=== PATIENT | male | born 1970 | race African-American/Black ===

== ENCOUNTER 2019-01-18 18:57 | Inpatient (IN) | payer OTHER ==
[2019-01-18 19:50] VITALS: BMI 28.8
--- NOTE | 2019-01-18 21:09 | HP ---
COWS - Scale Resting Pulse: 0= [place] 80 or Below Sweatin=Flushed/Facial Moisture Restless Observation: 3= Extraneous Movement Pupil Size: 0= Normal to Room Light Bone or Joint Aches: 0= None Runny Nose/ Eye Tearin= Nasal Congestion GI Upset > 30mins: 2= Nausea/Diarrhea Tremor Observation: 0= None Yawning Observation: 2= >3x During Session Anxiety or Irritability: 2=Irritable/Anxious Goose Flesh Skin: 0=Smooth Skin COWS Score: 12 CIWA Score - Admission Criteria OASAS Guidelines: Admission for Medically Managed Detox: Requires at least one of the followin. CIWA greater than 12 2. Seizures within the past 24 hours 3. Delirium tremens within the past 24 hours 4. Hallucinations within the past 24 hours 5. Acute intervention needed for co occurring medical disorder 6. Acute intervention needed for co occurring psychiatric disorder 7. Severe withdrawal that cannot be handled at a lower level of care (continued vomiting, continued diarrhea, abnormal vital signs) requiring intravenous medication and/or fluids 8. Admission ROS [facility] Chief Complaint: C/O WORSENING WITHDRAWAL SX'S Allergies/Adverse Reactions: Allergies Allergy/AdvReac Type Severity Reaction Status Date / Time No Known Allergies Allergy Verified 01/18/19 20:38 History of Present Illness: 48 Y.O. MALE WITH HX/O OPIOID DEPENDENCE HERE FOR DETOX. CLIENT WAS REFERRED BY [facility] AFTER PRESENTING THERE FOR DETOX WITH NO BED AVAILABILITY. THIS IS HIS FIRST ADMISSION HERE. HE REPORTS THIS IS HIS FIRST ATTEMPT AT DETOX. PRESENT WITH C/O WORSENING WITHDRAWAL SX'S. COWS 12. UTOX + THC, AYLA, FEN, OPI. DENIES ANY CLEAN TIME. DENIES HX/O SEIZURES, SI/HI/AVH, DRUG OVER DOSE. LIVES WITH , UNEMPLOYED, DENIES LEGALS. PMHX- HX/O +PPD PSYCH- DENIES Exam Limitations: No Limitations - Ebola screening Have you traveled outside of the country in the last 21 days: No (N) Have you had contact with anyone from an Ebola affected area: No Have you been sick,other than usual withdrawal symptoms: No Do you have a fever: No - Review of Systems Constitutional: Chills, Loss of Appetite, Night Sweats, Changes in sleep, Unintentional Wgt. Loss EENT: reports: Dental Problems (MISSING TEETH) Respiratory: reports: No Symptoms reported Cardiac: reports: No Symptoms Reported GI: reports: Diarrhea, Poor Appetite, Poor Fluid Intake : reports: No Symptoms Reported Musculoskeletal: reports: Back Pain (CHRONIC) Integumentary: reports: No Symptoms Reported Neuro: reports: No Symptoms reported Endocrine: reports: No Symptoms Reported Hematology: reports: No Symptoms Reported Psychiatric: reports: Orientated x3 Other Systems: Reviewed and Negative Patient History - Patient Medical History Hx Anemia: No Hx Asthma: No Hx Chronic Obstructive Pulmonary Disease (COPD): No Hx Cancer: No Hx Cardiac Disorders: No Hx Congestive Heart Failure: No Hx Hypertension: No Hx Hypercholesterolemia: No Hx Pacemaker: No HX Cerebrovascular Accident: No Hx Seizures: No Hx Dementia: No Hx Diabetes: No Hx Gastrointestinal Disorders: No Hx Liver Disease: No Hx Genitourinary Disorders: No Hx Sexually Transmitted Disorders: No Hx Renal Disease (ESRD): No Hx Thyroid Disease: No Hx Human Immunodeficiency Virus (HIV): No Hx Hepatitis C: No Hx Depression: No Hx Suicide Attempt: No Hx Bipolar Disorder: No Hx Schizophrenia: No Other Medical History: HX/O +PPD-TX'ED - Patient Surgical History Past Surgical History: Yes Hx Neurologic Surgery: No Hx Cataract Extraction: No Hx Cardiac Surgery: No Hx Lung Surgery: No Hx Breast Surgery: No Hx Breast Biopsy: No Hx Abdominal Surgery: No Hx Appendectomy: No Hx Cholecystectomy: No Hx Genitourinary Surgery: No Hx Section: No Hx Orthopedic Surgery: Yes (JAW FX) Anesthesia Reaction: No - PPD History Previous Implant?: Yes Documented Results: Positive w/o proof Implanted On Prior R Admission?: No PPD to be Administered?: No - Smoking Cessation Smoking history: Current every day smoker Have you smoked in the past 12 months: Yes Aproximately how many cigarettes per day: 20 Cigars Per Day: 0 Hx Chewing Tobacco Use: No Initiated information on smoking cessation: Yes 'Breaking Loose' booklet given: 01/18/19 - Substance & Tx. History Hx Alcohol Use: No Hx Substance Use: Yes Substance Use Type: Cocaine, Heroin, Marijuana Hx Substance Use Treatment: No - Substances Abused Heroin Route: Injection Frequency: Daily Amount used: 13 bags Age of first use: 45 Date of Last Use: 01/17/19 COCAINE Route: Smoking Frequency: 3-6 times per week Amount used: 30 DOLLARS Age of first use: 28 Date of Last Use: 01/17/19 THC Route: Smoking Frequency: 1-3 times last 30 days Amount used: 2 PUFF Age of first use: 16 Date of Last Use: 01/14/19 Family Disease History - Family Disease History Family Disease History: Diabetes: Father, Mother (ESRD-HD), Sister, CA: Grandparent (COLON), Other: Grandparent, Mother Admission Physical Exam S - Vital Signs Vital Signs: Vital Signs - 24 hr 01/18/19 19:47 Temperature 97.1 F L Pulse Rate 69 Respiratory 18 Rate Blood Pressure 101/65 - Physical General Appearance: Yes: Appropriately Dressed, Anxious HEENTM: Yes: EOMI, Normocephalic, Normal Voice, BILLIE, Pharynx Normal, Nasal Congestion, Other (MISSING TEETH) Respiratory: Yes: Chest Non-Tender, Lungs Clear, Normal Breath Sounds, No Respiratory Distress, No Accessory Muscle Use Neck: Yes: No masses,lesions,Nodules, Supple, Trachea in good position Breast: Yes: Breast Exam Deferred Cardiology: Yes: Regular Rhythm, Regular Rate, S1, S2 Abdominal: Yes: Non Tender, Soft, Increased Bowel Sounds Genitourinary: Yes: Within Normal Limits (NO C/O OFFERED) Back: Yes: Normal Inspection Musculoskeletal: Yes: full range of Motion, Gait Steady Extremities: Yes: Normal Capillary Refill, Normal Range of Motion, Non-Tender Neurological: Yes: hotel houseman II-XII NML intact, Fully Oriented, Alert, Motor Strength 5/5 Integumentary: Yes: Dry, Warm, Track Harry (ASSOCIATED WITH OLD ABCESS SCAR TISSUE TO BOTH ARMS), Other (LEFT FOREARM PUNCTURE WOUND X2 WITH YELLOWISH SLOUGH WITH INDURATED BORDERS. HOT TO TOUCH. CLIENT REPORTS HE WAS SEEN IN ER 1 WEEK AGO WHEN IT HAPPENED AND RECIEVED A TETANUS VACCINE AND IV ABT TXMNET. WILL TREAT FOR CELLULITIS) - Diagnostic (1) Opioid dependence with withdrawal Current Visit: Yes Status: Acute (2) Cannabis abuse, uncomplicated Current Visit: Yes Status: Acute (3) Cocaine abuse, uncomplicated Current Visit: Yes Status: Acute (4) At risk for dehydration due to poor fluid intake Current Visit: Yes Status: Acute (5) Nicotine dependence Current Visit: Yes Status: Chronic Qualifiers: Nicotine product type: cigarettes Substance use status: uncomplicated Qualified Code(s): F17.210 - Nicotine dependence, cigarettes, uncomplicated (6) Puncture wound of right forearm Current Visit: Yes Status: Acute Qualifiers: Encounter type: subsequent encounter Qualified Code(s): S51.831D - Puncture wound without foreign body of right forearm, subsequent encounter (7) Cellulitis of right forearm Current Visit: Yes Status: Acute (8) History of positive PPD Current Visit: Yes Status: Chronic Cleared for Admission [facility] - Detox or Rehab [facility] Level of Care: Medically Managed Detox Regimen/Protocol: Methadone Claeared for Rehab Admission: No [facility] Breath Alcohol Content Breath Alcohol Content: 0 Urine Drug Screen - Results Drug Screen Negative: No Urine Drug Screen Results: THC-Marijuana, AYLA-Cocaine, OPI-Opiates, FEN-Fentanyl Inpatient Rehab Admission - Rehab Decision to Admit Inpatient rehab admission?: No
[2019-01-18] MEDS ORDERED: NICOTINE POLACRILEX 2 MG GUM BC PRN (21:43)
[2019-01-18] MEDS ORDERED: IBUPROFEN 400 MG TABLET (FP) PO PRN (21:43)
[2019-01-18] MEDS ORDERED: MAG HYDROX/AL HYDROX/SIMETH 30 ML UNIT-DOSE CUP PO PRN (21:43)
[2019-01-18] MEDS ORDERED: MENTHOL/PHENOL 1 EACH UD MM PRN (21:43)
[2019-01-18] MEDS ORDERED: guaiFENesin/D-METHORPHAN HB 10 ML UNIT-DOSE CUPS PO PRN (21:43)
[2019-01-18] MEDS ORDERED: P-EPHED 60MG/TRIPROLIDI 2.5MG TABLET PO PRN (21:43)
[2019-01-18] MEDS ORDERED: hydrOXYzine PAMOATE 50 MG CAPSULE (FP) PO PRN (21:43)
[2019-01-18] MEDS ORDERED: MAGNESIUM CITRATE 300 ML BOTTLE PO PRN (21:43)
[2019-01-18] MEDS ORDERED: LOPERAMIDE HCL 2 MG CAPSULE PO PRN (21:43)
[2019-01-18] MEDS ORDERED: MAGNESIUM HYDROX 2400MG/30ML ORAL SUSPENSION 30 ML CUP PO PRN (21:43)
[2019-01-18] MEDS ORDERED: ACETAMINOPHEN 325 MG TABLET (FP) PO PRN (21:43)
[2019-01-18] MEDS ORDERED: MELATONIN 5 MG TABLETS PO PRN (22:00)
[2019-01-19] MEDS: THIAMINE HCL 100 MG TABLET (FP) PO SCH ×2 (00:48→22:25)
[2019-01-19] MEDS: CEPHALEXIN MONOHYDRATE 500 MG CAPSULE (UD) PO SCH ×5 (00:48→23:02)
[2019-01-19] MEDS ORDERED: METHADONE HCL 10 MG TABLET (FOR DETOX USE ONLY) PO ONE ×3 (00:58→23:00)
[2019-01-19] MEDS: NICOTINE 21 MG/24 HOURS TOPICAL PATCH TD SCH (10:18)
[2019-01-19] MEDS: diazePAM 5 MG TABLET PO PRN ×2 (10:19→22:25)
[2019-01-19] MEDS: PRENATAL VITAMINS W/ FOLIC ACID TABLET (FP) PO SCH (10:20)
[2019-01-19 10:22] LABS: HEMOGLOBIN 11.6 GM/dL (11.7-16.9); MCH 28.5 pg (25.7-33.7); MCHC 33.2 g/dl (32.0-35.9); MEAN CELL VOLUME 85.9 fl (80-96); MEAN PLT VOLUME 7.9 fl (7.5-11.1); PLATELET COUNT 353 K/MM3 (134-434); RBC 4.08 M/mm3 (4.00-5.60); RDW 14.5 % (11.9-15.9); WHITE BLOOD COUNT 4.9 K/mm3 (4.0-10.0)
[2019-01-19 12:02] LABS: ALBUMIN 2.9 g/dl (3.4-5.0); ALK PHOS 73 U/L (45-117); ANION GAP 6 MMOL/L (8-16); BILIRUBIN,TOTAL 0.2 mg/dL (0.2-1); BLOOD UREA NITROGEN 13 mg/dL (7-18); CALCIUM 8.6 mg/dL (8.5-10.1); CHLORIDE 105 mmol/L (98-107); CO2 29 mmol/L (21-32); GLUCOSE,RANDOM 88 mg/dL (74-106); POTASSIUM 4.8 mmol/L (3.5-5.1); SGOT/AST 50 U/L (15-37); SGPT/ALT 114 U/L (13-61); SODIUM 141 mmol/L (136-145); TOT PROT 7.5 g/dl (6.4-8.2)
--- NOTE | 2019-01-19 12:46 | EKG ---
Test Reason : Blood Pressure : / mmHG Vent. Rate : 070 BPM Atrial Rate : 070 BPM P-R Int : 146 ms QRS Dur : 102 ms QT Int : 410 ms P-R-T Axes : 083 079 060 degrees QTc Int : 442 ms NORMAL SINUS RHYTHM VOLTAGE CRITERIA FOR LEFT VENTRICULAR HYPERTROPHY ABNORMAL ECG NO PREVIOUS ECGS AVAILABLE Confirmed by GAYATHRI CUELLAR MD ([id number]) on 01/19/2019 12:46:23 PM Referred By: Confirmed By:GAYATHRI CUELLAR MD
--- NOTE | 2019-01-19 14:41 | PN ---
BHS COWS - Scale Resting Pulse: 1= [place] 81-100 Sweatin= Chills/Flushing Restless Observation: 0= Sits Still Pupil Size: 0= Normal to Room Light Bone or Joint Aches: 1= Mild Discomfort Runny Nose/ Eye Tearin= Nasal Congestion GI Upset > 30mins: 0= None Tremor Observation of Outstretched Hands: 1= Tremor [place], Not Seen Yawning Observation: 0= None Anxiety or Irritability: 1=Feels Anxious/Irritable Goose Flesh Skin: 0=Smooth Skin COWS Score: 6 BHS Progress Note (SOAP) Subjective: Says feels OK with detox protocol. Pt with forearm in bandage after being diagnosed with cellulitis after puncturing arm on metal gate, wants to go to rehab O: Vital Signs - 24 hr 01/18/19 01/19/19 01/19/19 19:47 00:30 03:30 Temperature 97.1 F L 98.2 F Pulse Rate 69 74 Respiratory 18 18 18 Rate Blood Pressure 101/65 126/72 01/19/19 01/19/19 01/19/19 07:50 09:13 12:56 Temperature 98.1 F 97.3 F L 97.4 F L Pulse Rate 78 76 66 Respiratory 18 18 18 Rate Blood Pressure 133/80 128/78 150/88 Laboratory Tests 01/19/19 01/19/19 01/19/19 07:00 07:00 07:00 WBC 4.9 RBC 4.08 Hgb 11.6 L Hct 35.0 L MCV 85.9 MCH 28.5 MCHC 33.2 RDW 14.5 Plt Count 353 MPV 7.9 Sodium 141 Potassium 4.8 Chloride 105 Carbon Dioxide 29 Anion Gap 6 L BUN 13 Creatinine 1.0 Creat Clearance w eGFR > 60 Random Glucose 88 Calcium 8.6 Total Bilirubin 0.2 AST 50 H ALT 114 H Alkaline Phosphatase 73 Total Protein 7.5 Albumin 2.9 L RPR Titer Nonreactive mild anemia. low albumin arm in bandage- pt came in yesterday, pt states arm is fine a/o: continue heroin detox protocol monitor arm injury/infection, daily dressing changes
[2019-01-19 19:53] LABS: URINE APPEARANCE TURBID; URINE BILIRUBIN NEGATIVE (<2.0 mg/dL); URINE COLOR AMBER; URINE GLUCOSE (UA) NEGATIVE (NEGATIVE); URINE KETONE NEGATIVE (NEGATIVE); URINE LEUK ESTERASE NEGATIVE (NEGATIVE); URINE NITRITE NEGATIVE (NEGATIVE); URINE PROTEIN 1+ (NEGATIVE)
[2019-01-19 19:58] LABS: CALCIUM OXALATE CRYSTALS FEW /hpf (NONE SEEN); URINE MUCUS RARE
[2019-01-20] MEDS: CEPHALEXIN MONOHYDRATE 500 MG CAPSULE (UD) PO SCH ×4 (06:21→23:13)
[2019-01-20] MEDS: diazePAM 5 MG TABLET PO PRN ×3 (06:23→22:21)
--- NOTE | 2019-01-20 09:45 | PN ---
BHS COWS - Scale Resting Pulse: 1= [place] 81-100 Sweatin= Chills/Flushing Restless Observation: 1= Difficult to Sit Still Pupil Size: 1= Pupils >than Normal Bone or Joint Aches: 2= Severe Diffuse Aches Runny Nose/ Eye Tearin= Runny Nose/Eyes GI Upset > 30mins: 2= Nausea/Diarrhea Tremor Observation of Outstretched Hands: 2= Slight Tremor Visible Yawning Observation: 1= 1-2x During Session Anxiety or Irritability: 2=Irritable/Anxious Goose Flesh Skin: 0=Smooth Skin COWS Score: 15 BHS Progress Note (SOAP) Subjective: alert,irritable,anxious,interrupted sleep,tremor,pain in the body and back Objective: 01/20/19 09:45 Vital Signs Temperature 98.2 F 01/20/19 09:35 Pulse Rate 81 01/20/19 09:35 Respiratory Rate 18 01/20/19 09:35 Blood Pressure 137/90 01/20/19 09:35 O2 Sat by Pulse Oximetry (%) Assessment: 01/20/19 09:45 withdrawal symptom Plan: continue detox
[2019-01-20] MEDS ORDERED: METHADONE HCL 10 MG TABLET (FOR DETOX USE ONLY) PO ONE (10:00)
[2019-01-20] MEDS: PRENATAL VITAMINS W/ FOLIC ACID TABLET (FP) PO SCH (10:37)
[2019-01-20] MEDS: NICOTINE 21 MG/24 HOURS TOPICAL PATCH TD SCH (10:37)
[2019-01-20] MEDS: THIAMINE HCL 100 MG TABLET (FP) PO SCH (22:21)
[2019-01-21] MEDS: diazePAM 5 MG TABLET PO PRN ×4 (05:34→23:07)
[2019-01-21] MEDS: CEPHALEXIN MONOHYDRATE 500 MG CAPSULE (UD) PO SCH ×4 (05:34→23:07)
[2019-01-21] MEDS ORDERED: METHADONE HCL 5 MG TABLET (FOR DETOX USE ONLY) PO ONE (10:00)
[2019-01-21] MEDS: NICOTINE 21 MG/24 HOURS TOPICAL PATCH TD SCH (10:28)
[2019-01-21] MEDS: PRENATAL VITAMINS W/ FOLIC ACID TABLET (FP) PO SCH (10:28)
--- NOTE | 2019-01-21 13:11 | PN ---
BHS Progress Note (SOAP) Subjective: agitation sweats irritable Objective: 01/21/19 13:10 Vital Signs Temperature 97.5 F L 01/21/19 09:07 Pulse Rate 87 01/21/19 09:07 Respiratory Rate 18 01/21/19 09:07 Blood Pressure 136/78 01/21/19 09:07 O2 Sat by Pulse Oximetry (%) Laboratory Tests 01/19/19 01/19/19 01/19/19 07:00 07:00 07:00 WBC 4.9 RBC 4.08 Hgb 11.6 L Hct 35.0 L MCV 85.9 MCH 28.5 MCHC 33.2 RDW 14.5 Plt Count 353 MPV 7.9 Sodium 141 Potassium 4.8 Chloride 105 Carbon Dioxide 29 Anion Gap 6 L BUN 13 Creatinine 1.0 Creat Clearance w eGFR > 60 Random Glucose 88 Calcium 8.6 Total Bilirubin 0.2 AST 50 H ALT 114 H Alkaline Phosphatase 73 Total Protein 7.5 Albumin 2.9 L Urine Color Urine Appearance Urine pH Ur Specific [place] Urine Protein Urine Glucose (UA) Urine Ketones Urine Blood Urine Nitrite Urine Bilirubin Urine Urobilinogen Ur Leukocyte Esterase Urine WBC (Auto) Urine RBC (Auto) Calcium Oxalate Crystal Urine Mucus RPR Titer Nonreactive 01/19/19 15:40 WBC RBC Hgb Hct MCV MCH MCHC RDW Plt Count MPV Sodium Potassium Chloride Carbon Dioxide Anion Gap BUN Creatinine Creat Clearance w eGFR Random Glucose Calcium Total Bilirubin AST ALT Alkaline Phosphatase Total Protein Albumin Urine Color Wendy Urine Appearance Turbid Urine pH 5.0 Ur Specific [place] 1.028 Urine Protein 1+ H Urine Glucose (UA) Negative Urine Ketones Negative Urine Blood Negative Urine Nitrite Negative Urine Bilirubin Negative Urine Urobilinogen 2.0 Ur Leukocyte Esterase Negative Urine WBC (Auto) 1 Urine RBC (Auto) None Calcium Oxalate Crystal Few Urine Mucus Rare RPR Titer aaox3 ambulating no acute distress labs noted Assessment: 01/21/19 13:11 withdrawal sx Plan: continue detox increase fluids
[2019-01-21] MEDS: THIAMINE HCL 100 MG TABLET (FP) PO SCH (23:07)
[2019-01-22] MEDS: CEPHALEXIN MONOHYDRATE 500 MG CAPSULE (UD) PO SCH ×2 (05:50→12:46)
[2019-01-22] MEDS ORDERED: METHADONE HCL 5 MG TABLET (FOR DETOX USE ONLY) PO ONE (10:00)
[2019-01-22 10:25] VITALS: BP 130/92; PULSE 58; TEMP 95.9
[2019-01-22] MEDS: NICOTINE 21 MG/24 HOURS TOPICAL PATCH TD SCH (10:42)
[2019-01-22] MEDS: PRENATAL VITAMINS W/ FOLIC ACID TABLET (FP) PO SCH (10:42)
--- NOTE | 2019-01-22 12:53 | PN ---
[facility] Progress Note Note: pt refused to continue with his detox regimen. pt was explained his purpose for completing detox but pt refused to listen and insisted on leaving. Pt spoke with counseling and RN as well. pt signed out AMA.
--- NOTE | 2019-01-22 12:56 | DS ---
[facility] Detox Discharge Summary Admission Date: 01/18/19 - History Present History: Cannabis Dependence, Cocaine Dependence, Opioid Dependence - Physical Exam Results Vital Signs: Vital Signs Temperature 95.9 F L 01/22/19 10:24 Pulse Rate 58 L 01/22/19 10:24 Respiratory Rate 18 01/22/19 10:24 Blood Pressure 130/92 01/22/19 10:24 O2 Sat by Pulse Oximetry (%) - Treatment Hospital Course: Discharged Condition Good - Medication Discharge Medications: Ambulatory Orders NK [No Known Home Medication] 01/18/19 - Diagnosis (1) Cannabis abuse, uncomplicated Current Visit: Yes Status: Chronic (2) Cellulitis of right forearm Current Visit: Yes Status: Acute (3) Cocaine abuse, uncomplicated Current Visit: Yes Status: Chronic (4) Opioid dependence with withdrawal Current Visit: Yes Status: Chronic (5) Puncture wound of right forearm Current Visit: Yes Status: Acute Qualifiers: Encounter type: subsequent encounter Qualified Code(s): S51.831D - Puncture wound without foreign body of right forearm, subsequent encounter (6) History of positive PPD Current Visit: Yes Status: Chronic (7) Nicotine dependence Current Visit: Yes Status: Chronic Qualifiers: Nicotine product type: cigarettes Substance use status: uncomplicated Qualified Code(s): F17.210 - Nicotine dependence, cigarettes, uncomplicated - AMA Did Patient Leave Against Medical Advice: Yes (going home)
[2019-01-23] MEDS ORDERED: METHADONE HCL 10 MG TABLET (FOR DETOX USE ONLY) PO ONE (10:00)
[2019-01-24] MEDS ORDERED: METHADONE HCL 5 MG TABLET (FOR DETOX USE ONLY) PO ONE (06:00)
== END 2019-01-22 13:40 | disposition left against medical advice (07) | DRG 770 ==
LOC: YASAS 18:57 → Y6N 22:14
PROVIDERS: ADMIT Surgery; ATTEND Surgery
PROC: HZ2ZZZZ Detoxification Services for Substance Abuse Treatment (ICD-10-PCS; principal; 2019-01-18)
DX: F11.23 Opioid dependence with withdrawal (principal); F14.10 Cocaine abuse, uncomplicated; F12.10 Cannabis abuse, uncomplicated; F17.210 Nicotine dependence, cigarettes, uncomplicated; L03.113 Cellulitis of right upper limb; R76.11 Nonspecific reaction to tuberculin skin test without active tuberculosis; Z59.0 Homelessness; S41.132D Puncture wound without foreign body of left upper arm, subsequent encounter; W22.8XXD Striking against or struck by other objects, subsequent encounter
CPT/HCPCS: 36415; 71046-TC-FY; 80053; 81003; 81015; 85027; 86593; 93005; 93010

== ENCOUNTER 2019-03-08 14:17 | Inpatient (IN) | payer OTHER ==
[2019-03-08 22:44] VITALS: BMI 29.5
[2019-03-08] MEDS ORDERED: METHADONE HCL 10 MG TABLET (FOR DETOX USE ONLY) PO ONE (23:00)
--- NOTE | 2019-03-08 23:25 | HP ---
COWS - Scale Resting Pulse: 0= [place] 80 or Below Sweatin=Flushed/Facial Moisture Restless Observation: 0= Sits Still Pupil Size: 1= Pupils >than Normal Bone or Joint Aches: 4=Acute Joint/Muscle Pain Runny Nose/ Eye Tearin= Nasal Congestion GI Upset > 30mins: 2= Nausea/Diarrhea (diarrhea x 3) Tremor Observation: 2= Slight Tremor Visible Yawning Observation: 1= 1-2x During Session Anxiety or Irritability: 2=Irritable/Anxious Goose Flesh Skin: 0=Smooth Skin COWS Score: 15 CIWA Score - Admission Criteria OASAS Guidelines: Admission for Medically Managed Detox: Requires at least one of the followin. CIWA greater than 12 2. Seizures within the past 24 hours 3. Delirium tremens within the past 24 hours 4. Hallucinations within the past 24 hours 5. Acute intervention needed for co occurring medical disorder 6. Acute intervention needed for co occurring psychiatric disorder 7. Severe withdrawal that cannot be handled at a lower level of care (continued vomiting, continued diarrhea, abnormal vital signs) requiring intravenous medication and/or fluids 8. Admission ROS [facility] Chief Complaint: Heroin withdrawal symptoms Allergies/Adverse Reactions: Allergies Allergy/AdvReac Type Severity Reaction Status Date / Time No Known Allergies Allergy Verified 03/08/19 22:39 History of Present Illness: 48 years old male with 23 years of heroin dependence is seeking admission to detox. Patient has been in previous detox multiple times and reports insignificant period of sobriety. He denies past medical history and suicidal ideation at this time. Exam Limitations: No Limitations - Ebola screening Have you traveled outside of the country in the last 21 days: No (N) Have you had contact with anyone from an Ebola affected area: No Have you been sick,other than usual withdrawal symptoms: No Do you have a fever: No - Review of Systems Constitutional: Chills, Malaise, Changes in sleep EENT: reports: Nose Congestion Respiratory: reports: No Symptoms reported Cardiac: reports: No Symptoms Reported GI: reports: Diarrhea (x 2), Nausea, Poor Appetite, Poor Fluid Intake, Abdominal cramping : reports: No Symptoms Reported Musculoskeletal: reports: Back Pain, Muscle Pain Integumentary: reports: Dryness, Flushing Neuro: reports: Tremors Endocrine: reports: No Symptoms Reported Hematology: reports: No Symptoms Reported Psychiatric: reports: Mood/Affect Appropiate, Orientated x3 Other Systems: Reviewed and Negative Patient History - Patient Medical History Hx Anemia: No Hx Asthma: No Hx Chronic Obstructive Pulmonary Disease (COPD): No Hx Cancer: No Hx Cardiac Disorders: No Hx Congestive Heart Failure: No Hx Hypertension: No Hx Hypercholesterolemia: No Hx Pacemaker: No HX Cerebrovascular Accident: No Hx Seizures: No Hx Dementia: No Hx Diabetes: No Hx Gastrointestinal Disorders: No Hx Liver Disease: No Hx Genitourinary Disorders: No Hx Sexually Transmitted Disorders: No Hx Renal Disease (ESRD): No Hx Thyroid Disease: No Hx Human Immunodeficiency Virus (HIV): No Hx Hepatitis C: No Hx Depression: No Hx Suicide Attempt: No Hx Bipolar Disorder: No Hx Schizophrenia: No - Patient Surgical History Past Surgical History: Yes Hx Neurologic Surgery: No Hx Cataract Extraction: No Hx Cardiac Surgery: No Hx Lung Surgery: No Hx Breast Surgery: No Hx Breast Biopsy: No Hx Abdominal Surgery: No Hx Appendectomy: No Hx Cholecystectomy: No Hx Genitourinary Surgery: No Hx Section: No Hx Orthopedic Surgery: Yes (JAW FX 20 YEARS AGO) Anesthesia Reaction: No - PPD History Previous Implant?: Yes (Treated with INH 10 years ago) Documented Results: Positive w/o proof Implanted On Prior [facility] Admission?: No PPD to be Administered?: No - Reproductive History Patient is a Female of Child Bearing Age (11 -55 yrs old): No (MALE) - Smoking Cessation Smoking history: Current every day smoker Have you smoked in the past 12 months: Yes Aproximately how many cigarettes per day: 20 Cigars Per Day: 0 Hx Chewing Tobacco Use: No Initiated information on smoking cessation: Yes 'Breaking Loose' booklet given: 03/08/19 - Substance & Tx. History Hx Alcohol Use: No Hx Substance Use: Yes Substance Use Type: Cocaine, Heroin Hx Substance Use Treatment: Yes ([facility]) - Substances abused Cocaine Substance route: Smoking Frequency: 3-6 times per week Amount used: $20 Age of first use: 25 Date of last use: 03/06/19 None Substance route: Injection Frequency: Daily Amount used: 2 bundles Age of first use: 25 Date of last use: 03/08/19 Family Disease History - Family Disease History Family Disease History: Diabetes: Father, Mother (ESRD-HD), Sister, CA: Grandparent (COLON), Other: Grandparent, Mother Admission Physical Exam [facility] - Vital Signs Vital Signs: Vital Signs - 24 hr 03/08/19 22:33 Temperature 97 F L Pulse Rate 78 Respiratory 18 Rate Blood Pressure 113/73 - Physical General Appearance: Yes: Moderate Distress, Tremorous, Anxious HEENTM: Yes: EOMI, Normal Voice, BILLIE Respiratory: Yes: Lungs Clear, Normal Breath Sounds, No Respiratory Distress Neck: Yes: Supple Breast: Yes: Breast Exam Deferred Cardiology: Yes: Regular Rhythm, Regular Rate Abdominal: Yes: Normal Bowel Sounds Genitourinary: Yes: Within Normal Limits Back: Yes: Normal Inspection Musculoskeletal: Yes: Back pain, Muscle Pain Extremities: Yes: Tremors Neurological: Yes: Alert, Normal Mood/Affect Integumentary: Yes: Warm, Track Harry (both arms) Lymphatic: Yes: Within Normal Limits - Diagnostic (1) Cocaine abuse, uncomplicated Current Visit: Yes Status: Chronic (2) History of positive PPD Current Visit: Yes Status: Chronic (3) Nicotine dependence Current Visit: Yes Status: Chronic Qualifiers: Nicotine product type: cigarettes Substance use status: uncomplicated Qualified Code(s): F17.210 - Nicotine dependence, cigarettes, uncomplicated (4) Opioid dependence with withdrawal Current Visit: Yes Status: Acute Cleared for Admission [facility] - Detox or Rehab [facility] Level of Care: Medically Managed Detox Regimen/Protocol: Methadone Urine Drug Screen - Test Device Lot number: [id number] Expiration date: 10/15/20 - Control Is test valid?: Yes - Results Drug screen NEGATIVE: No Urine drug screen results: AYLA-Cocaine, FEN-Fentanyl, BZO-Benzodiazepines Inpatient Rehab Admission - Rehab Decision to Admit Inpatient rehab admission?: No
[2019-03-08] MEDS ORDERED: MAG HYDROX/AL HYDROX/SIMETH 30 ML UNIT-DOSE CUP PO PRN (23:33)
[2019-03-08] MEDS ORDERED: ACETAMINOPHEN 325 MG TABLET (FP) PO PRN ×2 (23:33)
[2019-03-08] MEDS ORDERED: cloNIDine HCL 0.1 MG TABLET PO PRN (23:33)
[2019-03-08] MEDS ORDERED: MENTHOL/PHENOL 1 EACH UD MM PRN (23:33)
[2019-03-08] MEDS ORDERED: NICOTINE POLACRILEX 2 MG GUM BUC PRN (23:33)
[2019-03-08] MEDS ORDERED: MAGNESIUM HYDROX 2400MG/30ML ORAL SUSPENSION 30 ML CUP PO PRN (23:33)
[2019-03-08] MEDS ORDERED: BISMUTH SUBSALICYLATE 524 MG/30 ML UD PO PRN (23:33)
[2019-03-08] MEDS ORDERED: MAGNESIUM CITRATE 300 ML BOTTLE PO PRN (23:33)
[2019-03-09] MEDS: IBUPROFEN 400 MG TABLET (FP) PO PRN ×2 (01:59→17:54)
[2019-03-09] MEDS ORDERED: METHADONE HCL 10 MG TABLET (FOR DETOX USE ONLY) PO ONE (10:00)
[2019-03-09] MEDS: NICOTINE 14 MG/24 HOURS TOPICAL PATCH TD SCH (10:44)
[2019-03-09] MEDS: PRENATAL VITAMINS W/ FOLIC ACID TABLET (FP) PO SCH (10:45)
--- NOTE | 2019-03-09 11:47 | PN ---
BHS COWS - Scale Resting Pulse: 1= [place] 81-100 Sweatin=Flushed/Facial Moisture Restless Observation: 1= Difficult to Sit Still Pupil Size: 0= Normal to Room Light Bone or Joint Aches: 2= Severe Diffuse Aches Runny Nose/ Eye Tearin= Runny Nose/Eyes GI Upset > 30mins: 0= None Tremor Observation of Outstretched Hands: 2= Slight Tremor Visible Yawning Observation: 2= >3x During Session Anxiety or Irritability: 2=Irritable/Anxious Goose Flesh Skin: 3=[place]il[place] COWS Score: 17 BHS Progress Note (SOAP) Subjective: restless anxiety body aches chills sweats headache interrupted sleep Objective: 03/09/19 11:46 Vital Signs Temperature 97.3 F L 03/09/19 10:34 Pulse Rate 93 H 03/09/19 10:34 Respiratory Rate 18 03/09/19 10:34 Blood Pressure 128/64 03/09/19 10:34 O2 Sat by Pulse Oximetry (%) labs pending aaox3 ambulating no acute distress Assessment: 03/09/19 11:46 withdrawal sx Plan: continue detox increase fluids pending labs
[2019-03-09 12:05] LABS: HEMATOCRIT 36.6 % (35.4-49); HEMOGLOBIN 12.2 GM/dL (11.7-16.9); MCH 29.4 pg (25.7-33.7); MCHC 33.4 g/dl (32.0-35.9); MEAN CELL VOLUME 88.1 fl (80-96); MEAN PLT VOLUME 8.4 fl (7.5-11.1); PLATELET COUNT 228 K/MM3 (134-434); RBC 4.16 M/mm3 (4.00-5.60); RDW 15.2 % (11.9-15.9); WHITE BLOOD COUNT 3.5 K/mm3 (4.0-10.0)
[2019-03-09 12:27] LABS: ALBUMIN 3.2 g/dl (3.4-5.0); ALK PHOS 64 U/L (45-117); ANION GAP 6 MMOL/L (8-16); BILIRUBIN,TOTAL 0.3 mg/dL (0.2-1); BLOOD UREA NITROGEN 14 mg/dL (7-18); CALCIUM 9.2 mg/dL (8.5-10.1); CHLORIDE 105 mmol/L (98-107); CO2 30 mmol/L (21-32); CREATININE 0.9 mg/dL (0.55-1.3); GLUCOSE,RANDOM 136 mg/dL (74-106); POTASSIUM 4.2 mmol/L (3.5-5.1); SGOT/AST 64 U/L (15-37); SGPT/ALT 154 U/L (13-61); SODIUM 140 mmol/L (136-145); TOT PROT 7.2 g/dl (6.4-8.2)
[2019-03-09] MEDS: THIAMINE HCL 100 MG TABLET (FP) PO SCH (22:07)
[2019-03-09] MEDS: MELATONIN 5 MG TABLETS PO PRN (22:07)
[2019-03-10] MEDS: PRENATAL VITAMINS W/ FOLIC ACID TABLET (FP) PO SCH (09:55)
[2019-03-10] MEDS: NICOTINE 14 MG/24 HOURS TOPICAL PATCH TD SCH (09:55)
[2019-03-10] MEDS ORDERED: METHADONE HCL 10 MG TABLET (FOR DETOX USE ONLY) PO ONE (10:00)
--- NOTE | 2019-03-10 12:35 | PN ---
BHS COWS - Scale Resting Pulse: 0= [place] 80 or Below Sweatin=Flushed/Facial Moisture Restless Observation: 1= Difficult to Sit Still Pupil Size: 0= Normal to Room Light Bone or Joint Aches: 2= Severe Diffuse Aches Runny Nose/ Eye Tearin= Nasal Congestion GI Upset > 30mins: 0= None Tremor Observation of Outstretched Hands: 2= Slight Tremor Visible Yawning Observation: 1= 1-2x During Session Anxiety or Irritability: 2=Irritable/Anxious Goose Flesh Skin: 0=Smooth Skin COWS Score: 11 BHS Progress Note (SOAP) Subjective: chills sweats anxiety agitation interrupted sleep Objective: 03/10/19 12:33 Vital Signs Temperature 98.0 F 03/10/19 09:12 Pulse Rate 66 03/10/19 09:12 Respiratory Rate 18 03/10/19 09:12 Blood Pressure 140/82 03/10/19 09:12 O2 Sat by Pulse Oximetry (%) Laboratory Tests 03/09/19 03/09/19 03/09/19 07:30 07:30 07:30 WBC 3.5 L RBC 4.16 Hgb 12.2 Hct 36.6 MCV 88.1 MCH 29.4 MCHC 33.4 RDW 15.2 Plt Count 228 D MPV 8.4 Sodium 140 Potassium 4.2 Chloride 105 Carbon Dioxide 30 Anion Gap 6 L BUN 14 Creatinine 0.9 Creat Clearance w eGFR 89.32 Random Glucose 136 H Calcium 9.2 Total Bilirubin 0.3 AST 64 H ALT 154 H Alkaline Phosphatase 64 Total Protein 7.2 Albumin 3.2 L RPR Titer Nonreactive aaox3 ambulating no acute distress Assessment: 03/10/19 12:35 withdrawal sx Plan: continue detox increase fluids
[2019-03-10] MEDS: hydrOXYzine PAMOATE 25 MG CAPSULE (FP) PO PRN (21:55)
[2019-03-10] MEDS: METHOCARBAMOL 500 MG TABLET PO PRN (21:55)
[2019-03-10] MEDS: MELATONIN 5 MG TABLETS PO PRN (21:55)
[2019-03-10] MEDS: THIAMINE HCL 100 MG TABLET (FP) PO SCH (21:55)
[2019-03-11] MEDS ORDERED: METHADONE HCL 10 MG TABLET (FOR DETOX USE ONLY) PO ONE (10:00)
[2019-03-11] MEDS: NICOTINE 14 MG/24 HOURS TOPICAL PATCH TD SCH (10:35)
[2019-03-11] MEDS: PRENATAL VITAMINS W/ FOLIC ACID TABLET (FP) PO SCH (10:35)
--- NOTE | 2019-03-11 11:18 | PN ---
BHS COWS - Scale Resting Pulse: 1= [place] 81-100 Sweatin= Chills/Flushing Restless Observation: 1= Difficult to Sit Still Pupil Size: 0= Normal to Room Light Bone or Joint Aches: 0= None Runny Nose/ Eye Tearin= None GI Upset > 30mins: 0= None Tremor Observation of Outstretched Hands: 0= None Yawning Observation: 0= None Anxiety or Irritability: 0= None Goose Flesh Skin: 0=Smooth Skin COWS Score: 3 BHS Progress Note (SOAP) Subjective: anxiety body aches Objective: 03/11/19 11:17 Vital Signs Temperature 98.6 F 03/11/19 09:24 Pulse Rate 80 03/11/19 09:24 Respiratory Rate 18 03/11/19 09:24 Blood Pressure 117/64 03/11/19 09:24 O2 Sat by Pulse Oximetry (%) aaox3 ambulating no acute distress Assessment: 03/11/19 11:18 mild withdrawal sx Plan: continue detox d/c in am
[2019-03-11] MEDS: THIAMINE HCL 100 MG TABLET (FP) PO SCH (22:49)
[2019-03-11] MEDS: MELATONIN 5 MG TABLETS PO PRN (22:49)
[2019-03-11] MEDS: hydrOXYzine PAMOATE 25 MG CAPSULE (FP) PO PRN (22:51)
[2019-03-11] MEDS: METHOCARBAMOL 500 MG TABLET PO PRN (22:51)
[2019-03-12] MEDS ORDERED: METHADONE HCL 5 MG TABLET (FOR DETOX USE ONLY) PO ONE (06:00)
--- NOTE | 2019-03-12 09:24 | DS ---
[facility] Detox Discharge Summary Admission Date: 03/08/19 Discharge Date: 03/12/19 - History Present History: Alcohol Dependence, Cannabis Dependence, Cocaine Dependence - Physical Exam Results Vital Signs: Vital Signs Temperature 97.7 F 03/12/19 06:58 Pulse Rate 71 03/12/19 06:58 Respiratory Rate 16 03/12/19 06:58 Blood Pressure 96/52 L 03/12/19 06:58 O2 Sat by Pulse Oximetry (%) - Treatment Hospital Course: Detox Protocol Followed, Detoxed Safely, Responded well, Discharged Condition Good, Rehab Referral Accepted - Medication Discharge Medications: Ambulatory Orders NK [No Known Home Medication] 03/08/19 - Diagnosis (1) Opioid dependence with withdrawal Current Visit: Yes Status: Chronic (2) Cocaine abuse, uncomplicated Current Visit: Yes Status: Chronic (3) History of positive PPD Current Visit: Yes Status: Chronic (4) Nicotine dependence Current Visit: Yes Status: Chronic Qualifiers: Nicotine product type: cigarettes Substance use status: uncomplicated Qualified Code(s): F17.210 - Nicotine dependence, cigarettes, uncomplicated (5) Cellulitis of right forearm Current Visit: No Status: Acute (6) Puncture wound of right forearm Current Visit: No Status: Acute Qualifiers: Encounter type: subsequent encounter Qualified Code(s): S51.831D - Puncture wound without foreign body of right forearm, subsequent encounter (7) Cannabis abuse, uncomplicated Current Visit: No Status: Chronic - AMA Did Patient Leave Against Medical Advice: No (pt declined. )
[2019-03-12 09:51] VITALS: BP 110/75; PULSE 82; TEMP 98.1
== END 2019-03-12 09:27 | disposition home or self-care (01) | DRG 773 ==
LOC: YASAS 14:17 → Y6N 23:42
PROVIDERS: ADMIT Surgery; ATTEND Surgery
PROC: HZ2ZZZZ Detoxification Services for Substance Abuse Treatment (ICD-10-PCS; principal; 2019-03-08)
DX: F11.23 Opioid dependence with withdrawal (principal); F14.20 Cocaine dependence, uncomplicated; F12.20 Cannabis dependence, uncomplicated; F17.210 Nicotine dependence, cigarettes, uncomplicated; L03.113 Cellulitis of right upper limb; R76.11 Nonspecific reaction to tuberculin skin test without active tuberculosis
CPT/HCPCS: 36415; 80053; 85027; 86593; J0735